=== PATIENT | male | born 1950 | race African-American/Black ===

== ENCOUNTER → 2023-10-06 07:35 | Outpatient (REF) | payer MEDICARE, SELFPAY ==
[2023-10-06 08:20] LABS: % Basophils 0.8 % (0-2); % Eosinophils 4.1 % (0-6); % Immature Granulocytes 0.3 % (0-0.5); % Lymphocytes 48.5 % (20.5-51.1); % Monocytes 13.6 % (1.7-9.3); % Neutrophils 32.7 % (42.2-75.2); Absolute Eosinophils 0.2 10^3/uL (0-0.7); Absolute Lymphocytes 1.8 10^3/uL (1.2-3.4); Absolute Monocytes 0.5 10^3/uL (0.1-0.6); Absolute Neutrophils 1.2 10^3/uL (1.4-6.5); Hematocrit 44.2 % (39.0-52.0); Hemoglobin 14.6 g/dL (13.0-18.0); Mean Corpuscular Hgb 29.5 pg (27.0-31.0); Mean Corpuscular Volume 89.3 fL (80.0-94.0); Mean Platelet Volume 9.4 fL (7.4-10.4); Nucleated Red Blood Cells % 0 % (-); Platelet Count 208 10^3/uL (130-400); Red Blood Cell Count 4.95 10^6/uL (4.70-6.10); Red Cell Dist. Width 12.8 % (11.5-14.5); White Blood Cell Count 3.7 10^3/uL (4.8-10.8)
[2023-10-06 09:07] LABS: ALT (SGPT) 31 U/L (0-50); AST (SGOT) 33 U/L (17-59); Albumin 4.4 g/dl (3.5-5.0); Alkaline Phosphatase 54 U/L (38-126); Blood Urea Nitrogen 19 mg/dl (9-20); Calcium 8.8 mg/dl (8.4-10.2); Carbon Dioxide 26 mmol/L (22-30); Chloride 106 mmol/L (98-107); Glucose 104 mg/dl (70-99); HDL Cholesterol 47 mg/dl; LDL Cholesterol, Calculated 83 mg/dl; Potassium 4.2 mmol/L (3.5-5.1); Sodium 137 mmol/L (135-145); Total Bilirubin 0.8 mg/dl (0.2-1.3); Total Cholesterol 151 mg/dl (50-199); Total Protein 7.3 g/dl (6.3-8.2); Triglyceride 106 mg/dl (10-149); Very Low Density Lipoprotein 21 mg/dl (0-30); eGFR > 60.00
[2023-10-06 09:31] LABS: PSA, Total - Screen 4.89 ng/ml (0.0-4.0)
[2023-10-06 11:10] LABS: Glycohemoglobin (HgbA1c) 6.9 % (4.0-5.6)
== END ==
LOC: REG 07:35
PROVIDERS: ATTENDING PHYSICIAN Internal Medicine
DX: Z00.00 Encounter for general adult medical examination without abnormal findings (principal); E11.9 Type 2 diabetes mellitus without complications; E78.5 Hyperlipidemia, unspecified; Z12.5 Encounter for screening for malignant neoplasm of prostate
CPT/HCPCS: 36415; 80053; 80061; 83036; 85025; G0103

== ENCOUNTER → 2023-10-23 12:07 | Outpatient (REF) | payer MEDICARE, SELFPAY | LOC: RAD 12:07 | PROVIDERS: ATTENDING PHYSICIAN Nurse Practitioner Adult Health | DX: R10.12 Left upper quadrant pain (principal) | CPT/HCPCS: 76705 ==

== ENCOUNTER → 2024-02-16 07:18 | Outpatient (REF) | payer MEDICARE, SELFPAY ==
[2024-02-16 08:29] LABS: ALT (SGPT) 27 U/L (0-50); AST (SGOT) 34 U/L (17-59); Albumin 4.7 g/dl (3.5-5.0); Alkaline Phosphatase 48 U/L (38-126); Direct Bilirubin 0.3 mg/dl (0.0-0.4); Glucose 110 mg/dl (70-99); HDL Cholesterol 47 mg/dl; LDL Cholesterol, Calculated 97 mg/dl; Total Bilirubin 0.8 mg/dl (0.2-1.3); Total Cholesterol 159 mg/dl (50-199); Total Protein 7.4 g/dl (6.3-8.2); Triglyceride 76 mg/dl (10-149); Very Low Density Lipoprotein 15 mg/dl (0-30)
[2024-02-16 10:01] LABS: Glycohemoglobin (HgbA1c) 6.7 % (4.0-5.6)
== END ==
LOC: REG 07:18
PROVIDERS: ATTENDING PHYSICIAN Internal Medicine
DX: E11.9 Type 2 diabetes mellitus without complications (principal); E78.5 Hyperlipidemia, unspecified
CPT/HCPCS: 36415; 80061; 80076; 82947; 83036

== ENCOUNTER 2024-03-20 09:57 | Emergency (ER) | payer MEDICARE, SELFPAY ==
[2024-03-20 10:21] VITALS: BP 120/69
[2024-03-20 10:56] VITALS: BMI 24.2
[2024-03-20 11:14] VITALS: BP 113/67
--- NOTE | 2024-03-20 11:16 | ED.GENMED ---
History of Present Illness
General
Chief Complaint: Chest Pain
Source: patient
Exam Limitations: none
Time Seen by Provider: 03/20/24 10:36
Nursing documentation reviewed up to this point in time: agreed with
History of Present Illness
History of Present Illness:
73-year-old male with history of hyperlipidemia presenting to the emergency department for evaluation of atypical chest pain. Patient states while he was driving to the grocery store this morning he had a sharp 'twinge like ' pain in his left
chest. Patient states pain is very brief, only lasting a second or so. He had a few intermittent episodes of this and spoke to his primary care provider who recommended he come to the emergency department for evaluation. Patient denies any
exertional or pleuritic component to pain. Patient denies any positional component to pain. No alleviating or exacerbating factors. Patient denies any radiation of pain and to back, jaw, shoulder. No associated shortness of breath, nausea,
lightheadedness, dizziness, or diaphoresis.
Patient does note that he had a cardiac catheterization performed last summer which was normal. He follows with Dr. Alegria
Past History
Past History
ED Past Medical History: Hypercholesterolemia
ED Past Surgical History: None
Social History
Tobacco: Non-smoker
Alcohol: None
Drug: None
Living: alone
Review of Systems
Review of Systems
Allergies reviewed?: Yes
All Other Systems: ROS reviewed and negative except as documented in HPI and ROS
Phy Exam
Physical Exam
Physical Exam:
Vitals: Mildly bradycardic, otherwise vital signs stable. Afebrile
General: Patient is well appearing, no acute distress. Nontoxic-appearing
Skin: Warm and dry, no rashes or lesions
Head: Normocephalic, atraumatic
Eyes: Sclera nonicteric. EOMs intact. No nystagmus.
Throat: Protecting airway
Neck: Normal ROM, no cervical spine tenderness, no meningismus. Trachea midline
Cardiac: Regular rate and rhythm, no murmurs. No reproducible chest wall tenderness.
Pulm: Normal respiratory effort, no wheezes, rales, rhonchi heard on exam.
Abdomen: Abdomen soft. No abdominal tenderness.
Extremities: No evidence of cyanosis or edema. Great distal pulses
Neuro: AAOx3. CN II-XII intact. No focal neurologic deficits.
Psychiatric: Normal affect.
Scores
Heart Score for Chest Pain Patients
STEMI patient?: No
History: Slightly or Non-Suspicious
ECG: Nonspecific Repolarization
Age: >/= 65 years
Risk Factors: 1 or 2 Risk Factors
Troponin: </= Normal Limit
Heart Score for Chest Pain Patients: 4
Heart Score Risk: 20.3% MACE over next 6 weeks
Course
Orders/Labs/Results
Orders:
Orders
03/20/24 09:59
Electrocardiogram (*1) Urgent
Reason for Study: Chest Pain
EKG- Treatment ONCE
03/20/24 10:26
CR Chest - 2 Views Urgent
Comment:
Reason For Exam: cough
03/20/24 11:13
Basic Metabolic Panel Urgent
Troponin I Urgent
03/20/24 11:14
Complete Blood Count/With Diff Urgent
03/20/24 14:15
Electrocardiogram (*1) Urgent
Reason for Study: Chest Pain
EKG- Treatment ONCE
03/20/24 14:28
Troponin I Urgent
Abnormal Lab Results
03/20/24 03/20/24
11:13 11:14
WBC 3.2 L 10^3/uL
(4.8-10.8)
Monocytes % 14.6 H %
(1.7-9.3)
Glucose 103 H mg/dl
(70-99)
03/20/24 11:14
03/20/24 11:13
Vital Signs
Initial and Last Documented VS:
Initial Vital Signs
Temp Pulse Resp BP Pulse Ox
98.4 F 58 18 120/69 99
03/20/24 10:21 03/20/24 10:21 03/20/24 10:21 03/20/24 10:21 03/20/24 10:21
Last Documented Vital Signs
Temp Pulse Resp BP Pulse Ox
98.4 F 45 14 101/67 99
03/20/24 10:21 03/20/24 12:00 03/20/24 12:00 03/20/24 12:00 03/20/24 12:00
MDM/Problems Addressed
Differential Diagnosis Includes:
Not limited to: Muscular strain/muscular spasm, pleurisy, pericarditis, myocarditis, ACS, pneumothorax
MDM/Problems Addressed:
73 year old male presenting with atypical intermittent chest pain since this morning. No pleuritic or exertional component. Describes as 'twinge like pain' in left chest without any radiation to back. Vital signs stable. Physical exam as above.
Patient very well appearing, in no apparent distress. Heart regular rate and rhythm. Lungs clear bilaterally. No lower leg edema. Patient perfusing well. Initial EKG with some subtle nonspecific changes although seen in prior. No acute ischemic
changes. Labs were initiated without any clinically significant abnormalities. Initial troponin normal. Will repeat trop and monitor patient.
Repeat trop negative. Repeat EKG without any changes. Patient has been monitored in ED for many hours. He reports possibly 1 or 2 twinges during that span. Trended trops remain normal. A chest xray was obtained which shows no acute pulmonary
process. A small nodule vs vasculature was noted in RUL. Patient made aware and given copy of report to have followed up with PCP.
Given atypical nature of pain along with negative cardiac enzymes low suspicion for acute cardiac process. Patient stable for discharge with close cardiology f/u. Return precautions discussed. Patient seen with attending physican.
Chronic conditions affecting care:
Hyperlipidemia, prediabetes
Acute Exacerbation and/or Progression of Chronic Illness:
N/A
*Radiology
Radiology exam reviewed: preliminary read by ED provider (No acute disease of chest) and radiology read reviewed
*Pulse Oximetry
Patient hypoxic: no
*EKG
Interpreted by ED Provider?: Yes
EKG Intrepretation Date: 03/20/24
Interpretation: abnormal
Comparison EKG: no changes
Heart Rate: 58
Rate: bradycardiac
Rhythm: sinus
[place]: normal axis
Interval: normal interval
QRS Pattern: normal QRS
Ischemia: non-specific ST changes
*[employer] Interpretation
Rate: bradycardiac
Interpretation: normal
Heart Rate: 50
Rhythm: sinus
*Critical Care Note
Total Time (30-74mins, 75-104mins- exclusive of procedures): Not Applicable
Data Reviewed
Review of Other/Old Records Reveals: Operative Reports (Cardiac cath from 04/04- no CAD )
Source: previous radiology exam
ED Attending Note
-
Portions of this chart may have been created with voice recognition software.� Occasional wrong word or��sound alike� substitutions may have occurred due to the inherent limitations of voice recognition software.
Discharge Plan
Departure
Patient Disposition: Home (Routine Discharge)
Date of Disposition: 03/20/24
Time of Disposition: 15:43
Patient with high blood pressure during this ER visit?: Yes
Condition: Good
Covid-19: Not Applicable
Discharge Problem:
Chest pain, atypical
Instructions: Chest pain
Prescriptions:
No Action
simvastatin 40 mg Tablet
40 mg PO QPM
aspirin 81 mg Tablet,Chewable
81 mg PO QPM
Referrals:
Gurwinder Miranda MD [Active] - Next open appointment
Fermín Lane MD [Family Provider] -
Activity Restrictions/Additional Instructions:
RETURN TO THE EMERGENCY DEPARTMENT WITH ANY FEVERS, CHEST PAIN, SHORTNESS OF BREATH, DIZZINESS/LIGHTHEADEDNESS, PERSISTENT COUGH, WORSENING IN CURRENT SYMPTOMS, OR ANY OTHER CONCERNS
-As discussed�you should take it easy for the next few days. Stay well-hydrated. You can take Tylenol as needed for any discomfort.
-As discussed�there was an incidental finding on your chest x-ray today. You should have this followed up with an outpatient CT scan. You can have this scheduled with your primary care provider.
-Follow-up with Dr. Miranda for further evaluation/management to ensure symptoms are improving.
Monitor your symptoms closely and return to the emergency department with any acute worsening/new symptoms.
Interventions
Interventions:
*Risk Screen - Suicide Last Done: 03/20/24 10:21
*General Assessment Last Done: 03/20/24 10:21
*Neglect/Abuse Screening Last Done: 03/20/24 10:21
*ED COVID-19 Vaccine History Last Done: 03/20/24 10:56
*Nursing Disposition Last Done: 03/20/24 16:04
ED- Cardiac Assessment Last Done: 03/20/24 11:40
Discharge Date and Time
Discharge Date/Time: 03/20/24 16:29
Print Language: URDU
[2024-03-20 11:44] LABS: % Basophils 1.2 % (0-2); % Eosinophils 3.7 % (0-6); % Lymphocytes 37.7 % (20.5-51.1); % Monocytes 14.6 % (1.7-9.3); % Neutrophils 42.8 % (42.2-75.2); Absolute Eosinophils 0.1 10^3/uL (0-0.7); Absolute Lymphocytes 1.2 10^3/uL (1.2-3.4); Absolute Monocytes 0.5 10^3/uL (0.1-0.6); Absolute Neutrophils 1.4 10^3/uL (1.4-6.5); Hematocrit 40.9 % (39.0-52.0); Hemoglobin 14.1 g/dL (13.0-18.0); Mean Corp Hgb Conc. 34.5 g/dL (33.0-37.0); Mean Corpuscular Hgb 29.5 pg (27.0-31.0); Mean Corpuscular Volume 85.6 fL (80.0-94.0); Mean Platelet Volume 9.7 fL (7.4-10.4); Nucleated Red Blood Cells % 0 % (-); Platelet Count 207 10^3/uL (130-400); Red Blood Cell Count 4.78 10^6/uL (4.70-6.10); Red Cell Dist. Width 12.9 % (11.5-14.5); White Blood Cell Count 3.2 10^3/uL (4.8-10.8)
[2024-03-20 12:00] VITALS: BP 101/67
[2024-03-20 12:03] LABS: Blood Urea Nitrogen 20 mg/dl (9-20); Calcium 9.4 mg/dl (8.4-10.2); Carbon Dioxide 26 mmol/L (22-30); Chloride 106 mmol/L (98-107); Estimated Creatinine Clearance 64 ml/min; Glucose 103 mg/dl (70-99); Sodium 137 mmol/L (135-145); eGFR > 60.00
[2024-03-20 12:07] LABS: Troponin I 0.023 ng/ml
[2024-03-20 15:13] LABS: Troponin I < 0.012 ng/ml
== END 2024-03-20 16:29 | disposition home or self-care (01) ==
LOC: EMR 09:57
PROVIDERS: Emergency Medicine; Physician Assistant; EMERGENCY PHYSICIAN Emergency Medicine; FAMILY PHYSICIAN Internal Medicine
DX: R07.89 Other chest pain (principal); R03.0 Elevated blood-pressure reading, without diagnosis of hypertension; E78.00 Pure hypercholesterolemia, unspecified
CPT/HCPCS: 99285; 71046; 80048; 84484; 85025; 93005

== ENCOUNTER → 2024-07-03 07:38 | Outpatient (REF) | payer MEDICARE, SELFPAY ==
[2024-07-03 09:54] LABS: ALT (SGPT) 41 U/L (0-50); AST (SGOT) 41 U/L (17-59); Albumin 4.8 g/dl (3.5-5.0); Alkaline Phosphatase 48 U/L (38-126); Direct Bilirubin 0.2 mg/dl (0.0-0.4); Glucose 124 mg/dl (70-99); HDL Cholesterol 50 mg/dl; LDL Cholesterol, Calculated 136 mg/dl; Total Bilirubin 0.8 mg/dl (0.2-1.3); Total Cholesterol 210 mg/dl (50-199); Total Protein 7.9 g/dl (6.3-8.2); Triglyceride 121 mg/dl (10-149); Very Low Density Lipoprotein 24 mg/dl (0-30)
[2024-07-03 15:07] LABS: Glycohemoglobin (HgbA1c) 6.9 % (4.0-5.6)
== END ==
LOC: REG 07:38
PROVIDERS: ATTENDING PHYSICIAN Internal Medicine
DX: E11.9 Type 2 diabetes mellitus without complications (principal)
CPT/HCPCS: 36415; 80061; 80076; 82947; 83036

== ENCOUNTER → 2024-09-29 15:22 | Outpatient (REF) | payer MEDICARE, SELFPAY ==
[2024-09-29 16:37] LABS: Urine Albumin 2+ (Neg - Trace); Urine Bilirubin Negative (Negative); Urine Character Clear (Clear); Urine Color Yellow; Urine Glucose 2+ (Negative); Urine Ketone Negative (Negative); Urine Leukocyte Negative (Negative); Urine Nitrite Negative (Negative); Urine Occult Blood 4+ (Negative); Urine Urobilinogen Negative (Neg - 1+)
[2024-09-29 16:45] LABS: Urine Squamous Cell 0-2 /LPF (Few)
[2024-09-29 16:46] LABS: Urine Bacteria Few (Negative); Urine Red Blood Cell 30-40 /HPF (0-2); Urine White Cell 0-2 /HPF (0-5)
== END ==
LOC: REG 15:22
PROVIDERS: ATTENDING PHYSICIAN Internal Medicine
DX: R31.29 Other microscopic hematuria (principal); R82.998 Other abnormal findings in urine
CPT/HCPCS: 81003; 81015

== ENCOUNTER → 2024-10-11 07:33 | Outpatient (REF) | payer MEDICARE, SELFPAY ==
[2024-10-11 08:36] LABS: % Basophils 0.8 % (0-2); % Lymphocytes 43.2 % (20.5-51.1); % Monocytes 13.9 % (1.7-9.3); % Neutrophils 39.1 % (42.2-75.2); Absolute Eosinophils 0.1 10^3/uL (0-0.7); Absolute Lymphocytes 1.6 10^3/uL (1.2-3.4); Absolute Monocytes 0.5 10^3/uL (0.1-0.6); Absolute Neutrophils 1.4 10^3/uL (1.4-6.5); Hematocrit 46.8 % (39.0-52.0); Hemoglobin 15.2 g/dL (13.0-18.0); Mean Corp Hgb Conc. 32.5 g/dL (33.0-37.0); Mean Corpuscular Hgb 29.3 pg (27.0-31.0); Mean Corpuscular Volume 90.2 fL (80.0-94.0); Mean Platelet Volume 9.4 fL (7.4-10.4); Nucleated Red Blood Cells % 0 % (-); Platelet Count 199 10^3/uL (130-400); Red Blood Cell Count 5.19 10^6/uL (4.70-6.10); Red Cell Dist. Width 13.1 % (11.5-14.5); White Blood Cell Count 3.7 10^3/uL (4.8-10.8)
[2024-10-11 09:05] LABS: ALT (SGPT) 32 U/L (0-50); AST (SGOT) 30 U/L (17-59); Alkaline Phosphatase 53 U/L (38-126); Blood Urea Nitrogen 17 mg/dl (9-20); Calcium 9.5 mg/dl (8.4-10.2); Carbon Dioxide 24 mmol/L (22-30); Chloride 106 mmol/L (98-107); Glucose 130 mg/dl (70-99); HDL Cholesterol 49 mg/dl; LDL Cholesterol, Calculated 112 mg/dl; Potassium 4.4 mmol/L (3.5-5.1); Sodium 140 mmol/L (135-145); Total Bilirubin 0.9 mg/dl (0.2-1.3); Total Cholesterol 183 mg/dl (50-199); Total Protein 7.8 g/dl (6.3-8.2); Triglyceride 111 mg/dl (10-149); Very Low Density Lipoprotein 22 mg/dl (0-30); eGFR > 60.00
[2024-10-12 22:12] LABS: PSA Total 5.6 ng/mL (0.0-4.0)
== END ==
LOC: REG 07:33
PROVIDERS: ATTENDING PHYSICIAN Internal Medicine
DX: E11.9 Type 2 diabetes mellitus without complications (principal); E78.5 Hyperlipidemia, unspecified; Z00.01 Encounter for general adult medical examination with abnormal findings; R97.20 Elevated prostate specific antigen [PSA]
CPT/HCPCS: 36415; 80053; 80061; 83036; 84153; 84154; 85025

== ENCOUNTER → 2024-10-15 08:34 | Outpatient (REF) | payer MEDICARE, SELFPAY | LOC: RAD 08:34 | PROVIDERS: ATTENDING PHYSICIAN Internal Medicine | DX: R31.29 Other microscopic hematuria (principal) | CPT/HCPCS: 74018; 76770 ==

== ENCOUNTER → 2024-11-19 11:36 | Outpatient (REF) | payer MEDICARE, SELFPAY | LOC: SDSPAT 11:36 | PROVIDERS: ATTENDING PHYSICIAN Specialist; FAMILY PHYSICIAN Internal Medicine | DX: C67.9 Malignant neoplasm of bladder, unspecified (principal) | CPT/HCPCS: 36415; 93005 ==

== ENCOUNTER 2024-11-26 06:30 | Day surgery (SDC) | payer MEDICARE, SELFPAY ==
[2024-11-19 13:49] VITALS: BMI 23.9
--- NOTE | 2024-11-21 09:31 | VNURNOTE ---
Rec'ed info from Earlene in [facility] regarding scheduled surgical patient. Chart reviewed. Home Health Liaison spoke with patient at bedside to discuss VN nurse/therapy, visits, schedule and homebound status. Patient is agreeable and understands that
visits at home will be 2-3 x per week to assess and teach medical management. Stressed homebound criteria. 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 Instructed him that he may have post op restrictions- will be
provided DC instructions after surgery. Patient anxious, all questions answered. Patient is aware that [facility] them for start of care in 1-2 days after discharge from .
[facility] referral accepted in [facility].
[2024-11-26] VITALS (17 sets, daily range): BP systolic 92–145; BP diastolic 51–84; BMI 23.9
[2024-11-26] MEDS: NORMOSOL-R/PLASMALYTE-A 1000 IV (08:51)
[2024-11-26] MEDS: CYSVIEW KIT 100 MG INTRAVES (08:57)
[2024-11-26 12:12] LABS: Glucose - Point of Care 111 mg/dl (70-99)
[2024-11-26] MEDS: SYRINGE NON-PUMP 50 MG IRRIG ×2 (12:24→12:25)
[2024-11-26] MEDS: SYRINGE NON-PUMP 50 ML IRRIG ×2 (12:24→12:25)
--- NOTE | 2024-11-26 14:30 | PTCARENOTE ---
Received pt from PACU. Pt AAOx3 but drowsy and forgetful. VSS. 3-way sorenson with CBI, traction to be removed at 16:00. Thigh high TEDs and SCDS on. Skin intact. No complaints at this time. Oriented to unit and to call rodrigues. Bed locked and in lowest
position.
[2024-11-26] MEDS: COLACE PO (16:21)
[2024-11-26] MEDS: LOW STRENGTH ASPIRIN 81 MG PO (17:52)
[2024-11-26] MEDS: LIPITOR 20 MG PO (17:52)
[2024-11-27 03:15] VITALS: BP 94/48
[2024-11-27 07:30] VITALS: BP 101/54
[2024-11-27] MEDS: COLACE 100 MG PO (07:57)
[2024-11-27] MEDS: TOPROL XL 25 MG PO (07:57)
--- NOTE | 2024-11-27 09:53 | W.PN.URO.CBU ---
Today's Communication / Plan
-
Cannon removal/voiding trial/discharge
Assessment / Plan
-
stable
Diagnosis
-
Date of Service: November 27, 2024
-
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
Post Op Day: 1
Subjective
-
cath bother only
Objective
-
Vital Signs
Temp Pulse Resp BP Pulse Ox
98.1 F 60 18 97/49 99
11/27/24 07:30 11/27/24 07:57 11/27/24 07:30 11/27/24 07:57 11/27/24 07:30
Intake and Output
11/26/24 11/27/24 11/28/24
06:59 06:59 06:59
Intake Total 520 / 520
Output Total 1075 / 1075
Balance -555 / -555
Intake:
Oral fluids 120 / 120
IV fluids (Total) 400 / 400
Normosol 400 / 400
Output:
True Urine Output from CBI 1075 / 1075
Physical Exam
-
General - well developed, well nourished, no acute distress
Chest - clear bilaterally
Abdomen - soft, non-tender, no distention
Genitalia - Cannon with pink outflow
--- NOTE | 2024-11-27 10:11 | CM ---
CM met with patient in room. Patient confirmed demographics. Patient does not have a history of VN, SNF or DME. Patent is active with his PCP. Patient uses [facility] pharmacy.
PLAN: home no needs,
[2024-11-27] MEDS: COLACE PO (10:59)
--- NOTE | 2024-11-27 14:24 | VNURNOTE ---
Rec'ed update that patient's sorenson removed and + voiding. He declines VN. [facility] Intake updated.
[2024-11-27 15:00] VITALS: BP 92/52
[2024-11-27 15:18] LABS: Hepatitis C Antibody Negative (Negative)
== END 2024-11-27 15:28 | disposition home or self-care (01) ==
LOC: SDS 06:30
PROVIDERS: ATTENDING PHYSICIAN Specialist
DX: N30.20 Other chronic cystitis without hematuria (principal); C61 Malignant neoplasm of prostate; N40.1 Benign prostatic hyperplasia with lower urinary tract symptoms
CPT/HCPCS: 52601; 51720; C9738; 88305; 82962; 86803; 88344; A9589; J9201

== ENCOUNTER → 2025-02-19 08:08 | Outpatient (REF) | payer MEDICARE, SELFPAY ==
[2025-02-19 09:49] LABS: ALT (SGPT) 21 U/L (0-50); AST (SGOT) 24 U/L (17-59); Albumin 4.7 g/dl (3.5-5.0); Alkaline Phosphatase 51 U/L (38-126); Glucose 128 mg/dl (70-99); HDL Cholesterol 42 mg/dl; LDL Cholesterol, Calculated 101 mg/dl; Total Protein 7.7 g/dl (6.3-8.2); Very Low Density Lipoprotein 26 mg/dl (0-30)
[2025-02-19 11:22] LABS: Glycohemoglobin (HgbA1c) 6.7 % (4.0-5.6)
== END ==
LOC: REG 08:08
PROVIDERS: ATTENDING PHYSICIAN Internal Medicine
DX: Z00.01 Encounter for general adult medical examination with abnormal findings (principal); E11.9 Type 2 diabetes mellitus without complications; E78.5 Hyperlipidemia, unspecified
CPT/HCPCS: 36415; 80061; 80076; 82947; 83036

== ENCOUNTER → 2025-06-24 08:40 | Outpatient (REF) | payer MEDICARE, SELFPAY ==
[2025-06-24 10:06] LABS: ALT (SGPT) 28 U/L (0-50); AST (SGOT) 29 U/L (17-59); Albumin 4.9 g/dl (3.5-5.0); Alkaline Phosphatase 45 U/L (38-126); Glucose 117 mg/dl (70-99); HDL Cholesterol 44 mg/dl; LDL Cholesterol, Calculated 99 mg/dl; Total Protein 8.2 g/dl (6.3-8.2); Very Low Density Lipoprotein 17 mg/dl (0-30)
[2025-06-24 11:30] LABS: Glycohemoglobin (HgbA1c) 7.1 % (4.0-5.9)
== END ==
LOC: REG 08:40
PROVIDERS: ATTENDING PHYSICIAN Internal Medicine
DX: E11.9 Type 2 diabetes mellitus without complications (principal); E78.5 Hyperlipidemia, unspecified
CPT/HCPCS: 36415; 80061; 80076; 82947; 83036

== ENCOUNTER → 2025-08-08 09:14 | Outpatient (REF) | payer MEDICARE, SELFPAY ==
[2025-08-08 10:58] LABS: PSA, Total - Diagnostic 3.26 ng/ml (0.0-4.0)
== END ==
LOC: REG 09:14
PROVIDERS: ATTENDING PHYSICIAN Specialist
DX: C61 Malignant neoplasm of prostate (principal)
CPT/HCPCS: 36415; 84153